=== PATIENT | female | born 1950 ===

== ENCOUNTER → 2021-08-18 16:15 | Outpatient (CLI) | payer SELFPAY ==
--- NOTE | ~2021-08-18 | XR_ITS ---
XR lumbar spine min 4V DATE: 08/18/2021 17:01 INDICATION: Back pain TECHNIQUE: AP, lateral, coned lateral lumbosacral and bilateral oblique views COMPARISON: None FINDINGS: There is diffuse osteopenia. There is minimal dextroscoliosis of the lumbar spine. 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 There is multilevel degenerative disc disease, severe at L2-3 with mild retrolisthesis, mild at L3-4, moderate at L4-5 with associated mild retrolisthesis, moderately severe at L4-5 with minimal retroli sthesis, severe at L5-S1 with minimal retrolisthesis. There is degenerative change at the apophyseal joints, with associated minimal grade 1 anterolisthesi s at L3-4. The lumbar pedicles are intact. The sacroiliac joints appear normal. Surgical clips, right upper quadrant, likely due to cholecystectomy. IMPRESSION: Diffuse osteopenia Transitional lumbosacral vertebra Multilevel degenerative disc disease with associated mild retrolisthesis at L2-3 and L4-5 and L5-S1 Degenerative change at the apophyseal joints with associated minimal grade 1 anterolisthesis at L3-4 Reviewed, dictated and finalized at location A. [facility] [employer] IMPRESSION: Diffuse osteopenia Transitional lumbosacral vertebra Multilevel degenerative disc disease with associated mild retrolisthesis at L2- 3 and L4-5 and L5-S1 Degenerative change at the apophyseal joints with associated minimal grade 1 an terolisthesis at L3-4
== END ==
DX: M51.36 Other intervertebral disc degeneration, lumbar region (principal); M85.88 Other specified disorders of bone density and structure, other site
CPT/HCPCS: 72110